=== PATIENT | male | born 1990 | race Caucasian/White ===

== ENCOUNTER 2023-06-14 14:01 | Observation (INO) | payer OTHER ==
--- NOTE | 2023-06-14 14:08 | ED ---
General Adult HPI - General Source: patient, RN notes reviewed Mode of arrival: ambulatory Limitations: no limitations <Praveen Jensen - Last Filed: 06/14/23 14:07> <Frank Staton - Last Filed: 06/14/23 17:18> - General Stated complaint: hemoglobin low Time Seen by Provider: 06/14/23 14:07 - History of Present Illness Initial comments: 33-year-old male presents emergency Department with chief complaint of anemia. Patient states received phone call stating his hemoglobin is fine. He states that he's been having rectal bleeding from hemorrhoids he states was improving. He did have some bad days. He does feel short breath, dizzy. (Praveen Jensen) 33-year-old male presents to ED with a chief complaint of abnormal labs. Patient states over the past for the 4-5 weeks, has had a bleeding hemorrhoid. States that this has been slowly seeping blood. Denies gross blood. Denies abdominal pain. Denies chest pain. States over the past week has felt increasingly lightheaded/dizzy and short of breath especially with activity. Per , states that her is more pale than usual. Notes his last colon oscopy was 7 years ago however is unable to report any remarkable findings. States that he had his blood drawn and was told that his hemoglobin was 5 and was advised to present to the ED for further evaluation. No other complaints. (Frank Staton) - Related Data Previous Rx's Medication Instructions Recorded EPINEPHrine [Epipen 2-Chris] 0.3 mg IJ ONCE PRN #2 auto.injct 06/05/18 predniSONE [Deltasone] 60 mg PO DAILY 4 Days #12 tablet 06/05/18 Allergies Allergy/AdvReac Type Severity Reaction Status Date / Time No Known Allergies Allergy Verified 06/05/18 17:29 Review of Systems ROS Other: All systems not noted in ROS Statement are negative. <Praveen Jensen - Last Filed: 06/14/23 14:07> ROS Other: All systems not noted in ROS Statement are negative. <Frank Staton - Last Filed: 06/14/23 17:18> ROS Statement: Those systems with pertinent positive or pertinent negative responses have been documented in the HPI. Past Medical History Past Medical History: No Reported History History of Any Multi-Drug Resistant Organisms: None Reported Past Surgical History: No Surgical Hx Reported Past Psychological History: No Psychological Hx Reported Past Alcohol Use History: Occasional Past Drug Use History: None Reported <Praveen Jensen - Last Filed: 06/14/23 14:07> General Exam General appearance: alert, in no apparent distress <Praveen Jensen - Last Filed: 06/14/23 14:07> Limitations: no limitations General appearance: alert, in no apparent distress Eye exam: Present: normal appearance Neck exam: Present: normal inspection Respiratory exam: Present: normal lung sounds bilaterally Cardiovascular Exam: Present: regular rate, normal rhythm GI/Abdominal exam: Present: soft Rectal exam: Present: other (Exam showed nonthrombosed external hemorrhoid with no gross blood.) Neurological exam: Present: alert, oriented X3 Skin exam: Present: warm, dry <Frank Staton - Last Filed: 06/14/23 17:18> - General Exam Comments Initial Comments: Visual Physical Exam Vital signs reviewed General: Well-appearing, nontoxic, no acute distress. Head: Normocephalic, atraumatic Eyes: PERRLA, EOMI ENT: Airway patent Chest: Nonlabored breathing Skin: No visual rash, normal skin tone Neuro: Alert and oriented 3 Musculoskeletal: No gross abnormalities (Praveen Jensen) Course Vital Signs 06/14/23 14:04 Temperature 97.8 F Pulse Rate 96 Respiratory 20 Rate Blood Pressure 152/84 O2 Sat by Pulse 94 L Oximetry Medical Decision Making <Praveen Jensen - Last Filed: 06/14/23 14:07> - Lab Data Result diagrams: 06/14/23 14:17 06/14/23 14:17 <Frank Staton - Last Filed: 06/14/23 17:18> - Medical Decision Making I performed the quick note portion of this chart signed Praveen Jensen PA-C (Parveen Jensen) Was pt. sent in by a medical professional or institution ([place] Candelaria, DISTANCE EDUCATION DIRECTOR, urgent care, hospital, or usp...) When possible be specific @ -No Did you speak to anyone other than the patient for history (EMS, parent, family, police, friend...)? What history was obtained from this source @ -No Did you review nursing and triage notes (agree or disagree)? Why? @ -I reviewed and agree with nursing and triage notes Were old charts reviewed (outside hosp., previous admission, EMS record, old EKG, old radiological studies, urgent care reports/EKG's, usp records)? Report findings @ -No old charts were reviewed Differential Diagnosis (chest pain, altered mental status, abdominal pain women, abdominal pain men, vaginal bleeding, weakness, fever, dyspnea, syncope, headache, dizziness, GI bleed, back pain, seizure, CVA, palpatations, mental health, musculoskeletal)? @ -Differential Weakness: Hypoglycemia, shock, sepsis, hyponatremia, anemia, infection, IA, ETOH, adverse medicine reaction, overdose, stroke, this is not meant to be an all-inclusive list. EKG interpreted by me (3pts min.). @ -None at this time, pending X-rays interpreted by me (1pt min.). @ -None done CT interpreted by me (1pt min.). @ -None done U/S interpreted by me (1pt. min.). @ -None done What testing was considered but not performed or refused? (CT, X-rays, U/S, labs)? Why? @ -None What meds were considered but not given or refused? Why? @ -None Did you discuss the management of the patient with other professionals (professionals i.e. , PA, DISTANCE EDUCATION DIRECTOR, lab, RT, psych nurse, elementary school social worker, posting specialist, teacher, aoc airspace control officer, special education case manager)? Give summary @ -No Was smoking cessation discussed for >3mins.? @ -No Was critical care preformed (if so, how long)? @ -No Were there social determinants of health that impacted care today? How? (Homelessness, low income, unemployed, alcoholism, drug addiction, transportation, low edu. Level, literacy, decrease access to med. care, senior living, rehab)? @ -No Was there de-escalation of care discussed even if they declined (Discuss DNR or withdrawal of care, Hospice)? DNR status @ -No What co-morbidities impacted this encounter? (DM, HTN, Smoking, COPD, CAD, Cancer, CVA, ARF, Chemo, Hep., AIDS, mental health diagnosis, sleep apnea, morbid obesity)? @ -None Was patient admitted / discharged? Hospital course, mention meds given and route, prescriptions, significant lab abnormalities, going to OR and other pertinent info. @ -Admission 33-year-old male with a hemorrhoid noting some bleeding over the past few weeks now with lightheadedness, pallor, and shortness of breath is especially with activity sent in to the ED with abnormal labs. Here, hemoglobin 6.1. Exam showed no gross blood and currently patient has no signs of active bleeding. Patient given a unit of blood and a liter of fluids here in the ED. Patient will be admitted with consult to GI for continued transfusion, serial hemoglobin and GI consult. Discussed plan of care with patient who is in agreement. Undiagnosed new problem with uncertain prognosis? @ -No Drug Therapy requiring intensive monitoring for toxicity (Heparin, Nitro, Insulin, Cardizem)? @ -No Were any procedures done? @ -No Diagnosis/symptom? @ -Anemia, hemorrhoid, GI bleed Acute, or Chronic, or Acute on Chronic? @ -Acute Uncomplicated (without systemic symptoms) or Complicated (systemic symptoms)? @ -Complicated Side effects of treatment? @ -No Exacerbation, Progression, or Severe Exacerbation? @ -No Poses a threat to life or bodily function? How? (Chest pain, USA, IA, pneumonia, PE, COPD, DKA, ARF, appy, cholecystitis, CVA, Diverticulitis, Homicidal, Suicidal, threat to staff... and all critical care pts) @ -Yes, anemia (Frank Staton) - Lab Data Lab Results 06/14/23 06/14/23 06/14/23 Range/Units 14:17 14:17 14:17 WBC 3.6 L (3.8-10.6) k/uL RBC 3.63 L (4.30-5.90) m/uL Hgb 6.1 L* (13.0-17.5) gm/dL Hct 23.3 L (39.0-53.0) % MCV 64.1 L (80.0-100.0) fL MCH 16.8 L (25.0-35.0) pg MCHC 26.3 L (31.0-37.0) g/dL RDW 15.7 H (11.5-15.5) % Plt Count 339 (150-450) k/uL MPV 9.1 Neutrophils % 66 % Lymphocytes % 26 % Monocytes % 4 % Eosinophils % 2 % Basophils % 0 % Neutrophils # 2.4 (1.3-7.7) k/uL Lymphocytes # 1.0 (1.0-4.8) k/uL Monocytes # 0.2 (0-1.0) k/uL Eosinophils # 0.1 (0-0.7) k/uL Basophils # 0.0 (0-0.2) k/uL Hypochromasia Marked Microcytosis Marked PT 11.0 (9.0-12.0) sec INR 1.0 (<1.2) APTT 20.7 L (22.0-30.0) sec Sodium 140 (137-145) mmol/L Potassium 3.9 (3.5-5.1) mmol/L Chloride 104 (98-107) mmol/L Carbon Dioxide 24 (22-30) mmol/L Anion Gap 12 mmol/L BUN 16 (9-20) mg/dL Creatinine 0.98 (0.66-1.25) mg/dL Est GFR (CKD-EPI)AfAm >90 (>60 ml/min/1.73 sqM) Est GFR (CKD-EPI)NonAf >90 (>60 ml/min/1.73 sqM) Glucose 116 H (74-99) mg/dL Calcium 9.4 (8.4-10.2) mg/dL Magnesium 1.9 (1.6-2.3) mg/dL Total Bilirubin 0.6 (0.2-1.3) mg/dL AST 22 (17-59) U/L ALT 19 (4-49) U/L Alkaline Phosphatase 57 (38-126) U/L Total Protein 8.0 (6.3-8.2) g/dL Albumin 4.7 (3.5-5.0) g/dL Stool Occult Blood (Negative) Blood Type Blood Type Confirm Blood Type Recheck Bld Type Recheck Status Antibody Screen Crossmatch Spec Expiration Date 06/14/23 06/14/23 06/14/23 Range/Units 14:17 14:20 16:59 WBC (3.8-10.6) k/uL RBC (4.30-5.90) m/uL Hgb (13.0-17.5) gm/dL Hct (39.0-53.0) % MCV (80.0-100.0) fL MCH (25.0-35.0) pg MCHC (31.0-37.0) g/dL RDW (11.5-15.5) % Plt Count (150-450) k/uL MPV Neutrophils % % Lymphocytes % % Monocytes % % Eosinophils % % Basophils % % Neutrophils # (1.3-7.7) k/uL Lymphocytes # (1.0-4.8) k/uL Monocytes # (0-1.0) k/uL Eosinophils # (0-0.7) k/uL Basophils # (0-0.2) k/uL Hypochromasia Microcytosis PT (9.0-12.0) sec INR (<1.2) APTT (22.0-30.0) sec Sodium (137-145) mmol/L Potassium (3.5-5.1) mmol/L Chloride (98-107) mmol/L Carbon Dioxide (22-30) mmol/L Anion Gap mmol/L BUN (9-20) mg/dL Creatinine (0.66-1.25) mg/dL Est GFR (CKD-EPI)AfAm (>60 ml/min/1.73 sqM) Est GFR (CKD-EPI)NonAf (>60 ml/min/1.73 sqM) Glucose (74-99) mg/dL Calcium (8.4-10.2) mg/dL Magnesium (1.6-2.3) mg/dL Total Bilirubin (0.2-1.3) mg/dL AST (17-59) U/L ALT (4-49) U/L Alkaline Phosphatase (38-126) U/L Total Protein (6.3-8.2) g/dL Albumin (3.5-5.0) g/dL Stool Occult Blood Negative (Negative) Blood Type O Positive Blood Type Confirm O Positive Blood Type Recheck No Previous Record Bld Type Recheck Status CABO Indicated Antibody Screen NEGATIVE Crossmatch See Detail Spec Expiration Date 06/17/2023 - 2316 Disposition <Praveen Jensen - Last Filed: 06/14/23 14:07> Time of Disposition: 17:11 <Frank Staton - Last Filed: 06/14/23 17:18> Clinical Impression: Anemia, Hemorrhoid Disposition: ADMITTED IP TO THIS [facility] Condition: Good Referrals: Denise Rae DO [Primary Care Provider] - 1-2 days
[2023-06-14 14:42] LABS: ALT 19 U/L (4-49); AST 22 U/L (17-59); African American GFR (CKD) >90 (>60 ml/min/1.73 sqM); Albumin 4.7 g/dL (3.5-5.0); Alkaline Phosphatase 57 U/L (38-126); Anion Gap 12 mmol/L; Blood Urea Nitrogen 16 mg/dL (9-20); Calcium 9.4 mg/dL (8.4-10.2); Carbon Dioxide 24 mmol/L (22-30); Chloride 104 mmol/L (98-107); Glucose 116 mg/dL (74-99); Magnesium 1.9 mg/dL (1.6-2.3); Non-African American GFR(CKD) >90 (>60 ml/min/1.73 sqM); Potassium 3.9 mmol/L (3.5-5.1); Sodium 140 mmol/L (137-145); Total Bilirubin 0.6 mg/dL (0.2-1.3)
[2023-06-14 14:53] LABS: Basophils % (A) 0 %; Eosinophils # (A) 0.1 k/uL (0-0.7); Eosinophils % (A) 2 %; HCT 23.3 % (39.0-53.0); Hypochromasia Marked; Lymphocytes % (A) 26 %; MCH 16.8 pg (25.0-35.0); MCHC 26.3 g/dL (31.0-37.0); MCV 64.1 fL (80.0-100.0); Mean Platelet Volume 9.1; Microcytosis Marked; Monocytes # (A) 0.2 k/uL (0-1.0); Monocytes % (A) 4 %; Neutrophils # (A) 2.4 k/uL (1.3-7.7); Neutrophils % (A) 66 %; Platelet Count 339 k/uL (150-450); RBC 3.63 m/uL (4.30-5.90); RDW 15.7 % (11.5-15.5); WBC 3.6 k/uL (3.8-10.6)
[2023-06-14 14:57] LABS: HGB 6.1 gm/dL (13.0-17.5)
[2023-06-14 15:14] LABS: Partial Thromboplastin Time 20.7 sec (22.0-30.0)
[2023-06-14] MEDS ORDERED: SODIUM CHLORIDE 0.9% 1,000 ML IV STA (16:09)
[2023-06-14] MEDS ORDERED: NALOXONE 0.4 MG/ML 1 ML VIAL IV PRN (17:19)
[2023-06-14] MEDS ORDERED: ACETAMINOPHEN TAB 325 MG TAB PO PRN (17:19)
[2023-06-14] MEDS ORDERED: HYDROmorphone 1 MG/ML 1 ML SYRINGE IVP PRN (17:19)
[2023-06-14] MEDS ORDERED: ONDANSETRON 4 MG/2 ML VIAL IVP PRN (17:49)
[2023-06-14] MEDS ORDERED: MELATONIN 3 MG TABLET PO PRN (17:49)
--- NOTE | 2023-06-14 18:05 | P.HPIM ---
History of Present Illness H&P Date: 06/14/23 Patient was seen in the waiting room. 33-year-old male with PMH of hemorrhoids presents to the ED for abnormal blood work. Patient reports suffering from hemorrhoids since the age of 19. Over the last 2 weeks he has been experiencing BRBPR with every bowel movement. Bleeding is excessive but resolves on its own. He reports 1-2 bowel movements daily. Recently, he started experiencing palpitations while working out. He also experienced lightheadedness when attempting to climb a flight of stairs. He reports fatigue and generalized weakness. He denies any headache, lower extremity edema, nausea or vomiting, fever or chills, cough, chest pain, shortness of breath, changes in urination. No changes in appetite or weight. He denies any focal neurologic deficits, numbness/weakness/tingling of the extremities. He went to go see his PCP that [facility]. He was noted to have a low hemoglobin which prompted him to come to the ED. Patient was noted to be tachycardic with heart rate of 96 in the ED. Vital signs otherwise stable. CBC showed WBC count of 3.6, hemoglobin of 6.1 with MCV of 64.1. Coag panel showed a PTT of 20.7. CMP showed glucose 116. EKG from 06/05 showed normal sinus rhythm with sinus arrhythmia. Patient is admitted for symptomatic anemia and GI bleed with GI in consultation. Pertinent positives and negatives as discussed in HPI, a complete review of sy stems was performed and all other systems are negative. General: non toxic, no distress, appears at stated age Derm: warm, dry, pale Head: atraumatic, normocephalic, symmetric Eyes: EOMI, no lid lag, anicteric sclera Cardiovascular: Good distal perfusion in all 4 extremities Lungs: Breathing comfrotably , no accessory muscle use Ext: no gross muscle atrophy, no edema, no contractures Neuro: no focal neuro deficits Psych: Alert, oriented, appropriate affect Acute lower GI bleed Hemorrhoids Leukopenia Obesity Based on my assessment of this patient, this patient meets a high complexity level of care. Patient has a history of hemorrhoids with severe exacerbation or progression of disease which poses a threat to life or bodily function. Acute lower GI bleed: CBC Q4H x 2. Microcytic. Likely iron deficiency. Iron studies, Ferritin. Transfuse 1 unit PRBC. Telemetry monitoring. GI consult Hemorrhoids Leukopenia: Mild. Continue to monitor. Consider workup if persistent. Obesity: Encourage weight loss. SCD for DVT prophylaxis. FULL CODE. I have reviewed the following project management consultant notes: I have reviewed the results of the following tests: CBC, CMP, Coag panel. I have ordered the following tests: CBC, CMP, Iron studies, Ferritin I have discussed the care of this patient with the following independent historian: I have independently interpreted the following test below: EKG I have discussed the management of this patient with the following physician: Discussed with the ED provider. Past Medical History Past Medical History: No Reported History Additional Past Medical History / Comment(s): hemmorrhoids History of Any Multi-Drug Resistant Organisms: None Reported Past Surgical History: No Surgical Hx Reported Past Psychological History: No Psychological Hx Reported Past Alcohol Use History: Occasional Past Drug Use History: None Reported Medications and Allergies Home Medications Medication Instructions Recorded Confirmed Type Naproxen Sodium [Aleve] 220 - 440 mg PO BID PRN 06/14/23 06/14/23 History Allergies Allergy/AdvReac Type Severity Reaction Status Date / Time No Known Allergies Allergy Verified 06/14/23 18:02 Physical Exam Vitals: Vital Signs Temp Pulse Resp BP Pulse Ox 06/14/23 14:04 97.8 F 96 20 152/84 94 L Intake and Output 06/14/23 06/14/23 06/14/23 06:59 14:59 22:59 Other: Weight 120.202 kg Results CBC & Chem 7: 06/14/23 14:17 06/14/23 14:17 Labs: Abnormal Lab Results - Last 24 Hours (Table) 06/14/23 06/14/23 06/14/23 Range/Units 14:17 14:17 14:17 WBC 3.6 L (3.8-10.6) k/uL RBC 3.63 L (4.30-5.90) m/uL Hgb 6.1 L* (13.0-17.5) gm/dL Hct 23.3 L (39.0-53.0) % MCV 64.1 L (80.0-100.0) fL MCH 16.8 L (25.0-35.0) pg MCHC 26.3 L (31.0-37.0) g/dL RDW 15.7 H (11.5-15.5) % APTT 20.7 L (22.0-30.0) sec Glucose 116 H (74-99) mg/dL Crossmatch 06/14/23 Range/Units 14:17 WBC (3.8-10.6) k/uL RBC (4.30-5.90) m/uL Hgb (13.0-17.5) gm/dL Hct (39.0-53.0) % MCV (80.0-100.0) fL MCH (25.0-35.0) pg MCHC (31.0-37.0) g/dL RDW (11.5-15.5) % APTT (22.0-30.0) sec Glucose (74-99) mg/dL Crossmatch See Detail
[2023-06-14 20:39] LABS: Anisocytosis Slight; Basophils % (A) 0 %; Eosinophils # (A) 0.1 k/uL (0-0.7); Eosinophils % (A) 1 %; HCT 21.3 % (39.0-53.0); Hypochromasia Marked; Lymphocytes # (A) 1.1 k/uL (1.0-4.8); Lymphocytes % (A) 29 %; MCH 18.3 pg (25.0-35.0); MCHC 28.8 g/dL (31.0-37.0); MCV 63.5 fL (80.0-100.0); Mean Platelet Volume 8.2; Microcytosis Marked; Monocytes # (A) 0.2 k/uL (0-1.0); Monocytes % (A) 5 %; Neutrophils # (A) 2.5 k/uL (1.3-7.7); Neutrophils % (A) 64 %; Platelet Count 278 k/uL (150-450); Poikilocytosis Moderate; RBC 3.35 m/uL (4.30-5.90); RDW 18.4 % (11.5-15.5)
[2023-06-14 21:14] LABS: HGB 6.1 gm/dL (13.0-17.5)
[2023-06-14] MEDS: SODIUM CHLORIDE 0.9% 1,000 ML IV SCH (21:37)
[2023-06-15 01:22] LABS: Anisocytosis Moderate; Basophils % (A) 0 %; Eosinophils # (A) 0.1 k/uL (0-0.7); Eosinophils % (A) 2 %; HCT 22.6 % (39.0-53.0); Hypochromasia Marked; Lymphocytes # (A) 1.2 k/uL (1.0-4.8); Lymphocytes % (A) 32 %; MCH 19.4 pg (25.0-35.0); MCHC 29.5 g/dL (31.0-37.0); MCV 65.7 fL (80.0-100.0); Mean Platelet Volume 8.4; Microcytosis Marked; Monocytes # (A) 0.2 k/uL (0-1.0); Monocytes % (A) 6 %; Neutrophils # (A) 2.1 k/uL (1.3-7.7); Neutrophils % (A) 58 %; Platelet Count 235 k/uL (150-450); Poikilocytosis Marked; RBC 3.44 m/uL (4.30-5.90); RDW 20.1 % (11.5-15.5); WBC 3.6 k/uL (3.8-10.6)
[2023-06-15 01:35] LABS: HGB 6.7 gm/dL (13.0-17.5)
[2023-06-15] MEDS: SODIUM CHLORIDE 0.9% 1,000 ML IV SCH (03:11)
[2023-06-15 07:33] LABS: Anisocytosis Slight; Basophils % (A) 0 %; Eosinophils # (A) 0.1 k/uL (0-0.7); Eosinophils % (A) 2 %; HCT 23.9 % (39.0-53.0); HGB 7.1 gm/dL (13.0-17.5); Hypochromasia Marked; Lymphocytes # (A) 1.1 k/uL (1.0-4.8); Lymphocytes % (A) 34 %; MCH 19.4 pg (25.0-35.0); MCHC 29.6 g/dL (31.0-37.0); MCV 65.4 fL (80.0-100.0); Mean Platelet Volume 7.4; Microcytosis Marked; Monocytes # (A) 0.2 k/uL (0-1.0); Monocytes % (A) 6 %; Neutrophils # (A) 1.8 k/uL (1.3-7.7); Neutrophils % (A) 57 %; Platelet Count 271 k/uL (150-450); Poikilocytosis Marked; RBC 3.65 m/uL (4.30-5.90); RDW 19.5 % (11.5-15.5); WBC 3.2 k/uL (3.8-10.6)
[2023-06-15 09:24] LABS: Reticulocyte % 1.4 % (0.5-2.0)
[2023-06-15 10:30] VITALS: RESP 18
[2023-06-15 11:27] LABS: % Iron Saturation 2.62 (12.00-50.00); Ferritin 2.2 ng/mL (10.0-322.0)
--- NOTE | 2023-06-15 12:41 | P.CONS ---
History of Present Illness - Reason for Consult Consult date: 06/15/23 Anemia, GI bleed Requesting physician: Frank Staton - Chief Complaint Rectal bleeding, anemia - History of Present Illness This a pleasant 33-year-old male with a past medical history significant hemorrhoids which she states started at the age of 19. About 7 years ago he underwent hemorrhoidectomy with Dr. Aguilar out of [facility]. Patient came to emergency department because he was told he had a low hemoglobin of 5.0. He has been feeling very short of breath, dizzy and fatigued and went to his PCP who [facility] and called patient to tell him to go to the emergency department for further evaluation. Patient states he has been having rectal bleeding sundar t has been heavier over the past week and he attributes it to his hemorrhoids. He states that he had not been eating well and when he eats fatty foods or milk products he will have loose stools about 5-6 a day. States that since he started eating better bleeding has subsided. He actually sees Dr. Aguilar June 30. He denies any associated abdominal pain, nausea or vomiting. No abdominal cramping. He does state though he has a lot of abdominal issues as far as foods that he does not tolerate causing him upset stomach and diarrhea. Last EGD and colonoscopy about 7 years [address] Aguilar, states that everything was normal other than hemorrhoids. According to the patient he had multiple internal hemorrhoids and not all were able to be removed. On admission patient's hemoglobin was 6.1. His been transfused with 2 units of blood with a repeat hemoglobin of 7.1. He currently states he is feeling a little bit better, denies any shortness of breath or chest pain at this time. No abdominal pain, nausea or vomiting. States he has not had a bowel movement since yesterday and no further bleeding. He denies any anticoagulation or NSAID use. Review of Systems REVIEW OF SYSTEMS: CARDIOPULMONARY: No chest pain or shortness of breath. Gastrointestinal: No abdominal pain. No nausea or vomiting. No hematemesis, coffee-ground emesis. Rectal, reported as hemorrhoidal bleeding. GENITOURINARY: No dysuria or hematuria. MUSCULOSKELETAL: Reports normal range of motion. SKIN: No rashes. No jaundice. ENDOCRINE: No chills, fevers. No excessive weight gain or loss. No polydipsia or polyuria. PSYCHIATRIC: Unremarkable. NEUROLOGY: No change in mental status. Denies dizziness, headache. ENT: Vision unremarkable. CONSTITUTIONAL: No recent weight loss. No fever, chills, night sweats. Past Medical History Past Medical History: No Reported History Additional Past Medical History / Comment(s): hemmorrhoids History of Any Multi-Drug Resistant Organisms: None Reported Past Surgical History: No Surgical Hx Reported Past Psychological History: No Psychological Hx Reported Past Alcohol Use History: Occasional Past Drug Use History: None Reported Medications and Allergies Home Medications Medication Instructions Recorded Confirmed Type Naproxen Sodium [Aleve] 220 - 440 mg PO BID PRN 06/14/23 06/14/23 History Allergies Allergy/AdvReac Type Severity Reaction Status Date / Time No Known Allergies Allergy Verified 06/14/23 18:02 Physical Exam Vitals: Vital Signs Temp Pulse Resp BP Pulse Ox 06/15/23 07:35 98.8 F 64 17 131/92 99 06/15/23 04:25 60 16 138/80 98 06/14/23 23:41 98.6 F 62 16 120/72 98 06/14/23 22:47 98.6 F 68 16 127/75 100 06/14/23 22:27 98.7 F 66 16 127/68 100 06/14/23 22:20 98.5 F 70 16 127/64 100 06/14/23 20:31 98.1 F 67 16 122/66 100 06/14/23 20:24 61 16 122/66 06/14/23 19:27 98.7 F 61 16 102/51 100 06/14/23 19:07 98.6 F 59 L 16 127/71 100 06/14/23 18:55 98.6 F 72 18 126/66 99 06/14/23 14:04 97.8 F 96 20 152/84 94 L Intake and Output 06/14/23 06/15/23 06/15/23 22:59 06:59 14:59 Intake Total 310 310 Balance 310 310 Intake: Blood Product 310 310 Rc As-1 Unit 0 310 [id number] Rc As-1 Unit 310 [id number] General appearance: The patient is alert, oriented, appears in no acute distress. HET: Head is normocephalic and atraumatic. Conjunctiva pink. Sclera anicteric. Neck: Supple without lymphadenopathy. Trachea midline. Heart: Regular. Lungs: Equal expansion, normal respiratory effort. Abdomen: Soft, nontender, nondistended with bowel sounds. No guarding or rigidity. Skin: No rashes. No jaundice. Extremities: Normal skin color and turgor. No pedal edema. Neurological: No focal deficits. Alert and oriented x3. Results CBC & Chem 7: 06/15/23 07:25 06/15/23 07:25 Labs: Abnormal Lab Results - Last 24 Hours (Table) 06/14/23 06/14/23 06/14/23 Range/Units 14:17 14:17 14:17 WBC 3.6 L (3.8-10.6) k/uL RBC 3.63 L (4.30-5.90) m/uL Hgb 6.1 L* (13.0-17.5) gm/dL Hct 23.3 L (39.0-53.0) % MCV 64.1 L (80.0-100.0) fL MCH 16.8 L (25.0-35.0) pg MCHC 26.3 L (31.0-37.0) g/dL RDW 15.7 H (11.5-15.5) % APTT 20.7 L (22.0-30.0) sec Glucose 116 H (74-99) mg/dL Crossmatch 06/14/23 06/14/23 06/15/23 Range/Units 14:17 20:23 00:46 WBC 3.6 L (3.8-10.6) k/uL RBC 3.35 L 3.44 L (4.30-5.90) m/uL Hgb 6.1 L* 6.7 L* (13.0-17.5) gm/dL Hct 21.3 L 22.6 L (39.0-53.0) % MCV 63.5 L 65.7 L (80.0-100.0) fL MCH 18.3 L 19.4 L (25.0-35.0) pg MCHC 28.8 L 29.5 L (31.0-37.0) g/dL RDW 18.4 H 20.1 H (11.5-15.5) % APTT (22.0-30.0) sec Glucose (74-99) mg/dL Crossmatch See Detail 06/15/23 Range/Units 07:25 WBC 3.2 L (3.8-10.6) k/uL RBC 3.65 L (4.30-5.90) m/uL Hgb 7.1 L (13.0-17.5) gm/dL Hct 23.9 L (39.0-53.0) % MCV 65.4 L (80.0-100.0) fL MCH 19.4 L (25.0-35.0) pg MCHC 29.6 L (31.0-37.0) g/dL RDW 19.5 H (11.5-15.5) % APTT (22.0-30.0) sec Glucose (74-99) mg/dL Crossmatch Assessment and Plan (1) Rectal bleeding Narrative/Plan: 33-year-old male with a history of hemorrhoids status post hemorrhoidectomy approximately 7 years ago. Patient follows with Dr. Aguilar out of [facility] and is scheduled in 2 weeks for follow-up. Patient has been experiencing heavier amounts of bleeding from his hemorrhoids and believes it's related to increased diarrhea due to his diet. He had been feeling weak and dizzy have blood work done at his PCP showing a hemoglobin of 5.0. Unclear etiology of severe symptomatic anemia, patient does have a history of hemorrhoids however patient is again significantly anemic. Recommend further evaluation with upper and lower endoscopy for severe symptomatic anemia. Later in the afternoon patient left AGAINST MEDICAL ADVICE because he did not want to wait in the emergency department and wait for bed any longer. Patient was aware and told that there was a risk for continued bleeding and recommendation was for inpatient admission and EGD and colonoscopy. Status: Acute Code(s): K62.5 - HEMORRHAGE OF ANUS AND RECTUM SNOMED Code(s): 85716921 (2) Iron deficiency anemia Status: Acute Code(s): D50.9 - IRON DEFICIENCY ANEMIA, UNSPECIFIED SNOMED Code(s): 53301887 Plan: 1. Continue symptomatic and supportive care 2. Daily CBC, transfuse for hemoglobin less than 7 3. Iron studies reviewed, IV iron ordered 4. Clear liquid diet, nothing by mouth after midnight 5. Recommend EGD and colonoscopy tomorrow Thank you for this consultation, we will continue to follow Dr. Riky Aguilar I agree with the dictator's note, documented as a scribe by Zenaida Carbajal.
[2023-06-15 13:09] VITALS: BP 133/72; PULSE 60; TEMP 98.1
[2023-06-15 13:50] LABS: ALT 17 U/L (8-49); AST 22 U/L (13-35); Albumin 4.3 d/dL (3.8-4.9); Albumin/Globulin Ratio 2.05 Ratio (1.60-3.17); Alkaline Phosphatase 55 U/L (41-126); BUN/Creat Ratio 13.11 Ratio (12.00-20.00); Blood Urea Nitrogen 11.8 mg/dL (9.0-27.0); Carbon Dioxide 22.3 mmol/L (21.6-31.8); Chloride 109 mmol/L (96-109); Globulin 2.1 d/dL (1.6-3.3); Glucose 89 mg/dL (70-110); Potassium 4.6 mmol/L (3.5-5.5); Sodium 140 mmol/L (135-145); Total Bilirubin 0.8 mg/dL (0.3-1.2); Total Protein 6.4 d/dL (6.2-8.2)
--- NOTE | 2023-06-15 14:02 | P.DS ---
Providers Date of admission: 06/14/23 16:59 Expected date of discharge: 06/15/23 Attending physician: Thanh Archibald MD Consults: 06/14/23 17:19 Consult Physician Urgent Consulting Provider: Adrienne Aguilar Consult Reason/Comments: anemia, hemorrhoid, GI bleed Do you want consulting provider notified?: Yes Primary care physician: Denise Rae Hospital Course: Discharge Diagnosis: This is a summary of care as patient left AGAINST MEDICAL ADVICE. Acute blood loss anemia Hemorrhoids Severe iron deficiency anemia with ferritin 2.2 Leukopenia Hospital Course: Patient is a 33-year-old male with a history of multiple hemorrhoids who follows with Dr. Aguilar who has been suffering from hemorrhoids since the age of 19. Over the last 2 weeks he's been noticing bright red blood per rectum with every bowel movement. He had blood work done at his primary care physician office and was noted to have a hemoglobin of 5 and was directed to the ER. On arrival to the ER he underwent an extensive evaluation. On arrival vital signs were within normal limits. Laboratory analysis was remarkable for hemoglobin 6.1, h ematocrit 23.3, white blood cell count 6.3, PTT 20.7. Fecal occult blood testing was negative. He was transfused 2 units of packed red blood cells and his hemoglobin increased to 7.1. GI was consulted and was recommending upper and lower endoscopy. Patient did not have any repeat bleeding while in the ER, but had had no bowel movements. We recommended the patient staying to be evaluated with EGD and colonoscopy. However patient and were frustrated that he remain in the emergency department that there was no beds available upon the floor. They expressed this to both me and the GI nurse practitioner when we rounded this morning. We both encouraged him to stay for further evaluation giving the severity of his anemia which was unlikely due to hemorrhoids. We discussed that low blood counts can lead to weakness, trace of breath, chest pain, and syncopal episodes. Patient was encouraged to stay for colonoscopy. I was called by nursing that patient wanted to leave AMA as he still did not have a room at 1253, and he was asking if he could return for colonoscopy. I discussed with GI, but they are unable to accommodate as outpatient for emergency colonoscopy. Patient and elected to sign out AGAINST MEDICAL ADVICE. The left prior to my ability to reevaluate them. I did discuss with the nurse caring for the patient to encourage him to stay as his iron stores are exceedingly low,which she did and they continued to refuse to stay, I informed the nurse that he should follow up with his surgeon at the earliest convenience. Patient seen and examined at bedside at approx 0930. No additional bleeding, but no bowel movement while in the emergency department. He is feeling much better after receiving blood. states that they will sign out AMA if they don't get a bed as he will not prep for colonoscopy in the E with a shared bathroom. I informed her that we are doing the best to accommodate all patients holding in the ED and they are roomed in order received for the medical floor. Vital signs reviewed and stable. General: nontoxic, no distress, appears at stated age Cardiovascular: S1S2 reg, no murmur, positive posterior tibial pulse bilateral, Lungs: CTA bilateral, no rhonchi, no rales , no accessory muscle use Abdominal: soft, nontender to palpation, no guarding, no appreciable organomegaly Ext: no gross muscle atrophy, no edema b/l lower extremities, no contractures Neuro: CN II-XI grossly intact, no focal neuro deficits Psych: Alert, oriented, appropriate affect A total of 25 minutes of time were spent preparing this complex discharge summary. Patient was discharged on 06/15/23. This dictation was prepared using [employer] voice recognition software. Though every attempt is made to correct errors during dictation some may still exist. Patient Condition at Discharge: Undetermined Plan - Discharge Summary New Discharge Prescriptions: No Action Naproxen Sodium [Aleve] 220 - 440 mg PO BID PRN PRN Reason: Headache Discharge Medication List Naproxen Sodium [Aleve] 220 - 440 mg PO BID PRN 06/14/23 [History] Follow up Appointment(s)/Referral(s): Denise Rae DO [Primary Care Provider] - 1-2 days Discharge Disposition: LEFT AGAINST MEDICAL ADVICE
[2023-06-16] MEDS ORDERED: SODIUM FERRIC GLUCONAT-SUCROSE 125 MG in SODIUM CHLORIDE 0.9% 100 ML IVPB SCH (09:00)
== END 2023-06-15 13:15 | disposition left against medical advice (07) ==
LOC: EC 14:01 → 5NMEDONC 16:59
PROVIDERS: ADMIT Family Medicine; ATTEND Family Medicine
DX: D62 Acute posthemorrhagic anemia (principal); D50.9 Iron deficiency anemia, unspecified; D72.819 Decreased white blood cell count, unspecified; Z53.29 Procedure and treatment not carried out because of patient's decision for other reasons; K64.9 Unspecified hemorrhoids; R00.0 Tachycardia, unspecified; E66.9 Obesity, unspecified; Z68.37 Body mass index [BMI] 37.0-37.9, adult; Z79.52 Long term (current) use of systemic steroids
CPT/HCPCS: 36430; 96360; 96361 ×2; 99285; 36415; 93005; 86900; 86901; 80053 ×2; 82728; 83540; 83550; 83735; 85025 ×2; 85610; 85045; 85730; 86850; 86920; 82272; G0378 ×2; P9016

== ENCOUNTER → 2023-11-19 | Outpatient (CLI) | payer OTHER ==
[2023-11-19 15:37] LABS: % Iron Saturation 3.89 (12.00-50.00); ALT 12 U/L (8-49); AST 23 U/L (13-35); Albumin 4.6 g/dL (3.8-4.9); Albumin/Globulin Ratio 1.48 Ratio (1.60-3.17); Alkaline Phosphatase 72 U/L (41-126); Blood Urea Nitrogen 17.2 mg/dL (9.0-27.0); Calcium 9.6 mg/dL (8.7-10.3); Carbon Dioxide 24.4 mmol/L (21.6-31.8); Chloride 105 mmol/L (96-109); Ferritin 4.6 ng/mL (10.0-322.0); Globulin 3.1 g/dL (1.6-3.3); Glucose 89 mg/dL (70-110); Iron 20 UG/DL (50-175); Potassium 4.5 mmol/L (3.5-5.5); Sodium 141 mmol/L (135-145); Total Bilirubin 0.4 mg/dL (0.3-1.2); Total Iron Binding Capacity 514 UG/DL (228-460); Total Protein 7.7 g/dL (6.2-8.2)
[2023-11-19 15:54] LABS: Basophils # (A) 0.02 X 10*3/uL (0.00-0.10); Basophils % (A) 0.5 %; Eosinophils # (A) 0.07 X 10*3/uL (0.04-0.35); Eosinophils % (A) 1.6 %; HCT 37.2 % (37.2-50.0); HGB 10.7 g/dL (12.0-17.0); Hypochromasia (M) 2+; Lymphocytes # (A) 1.13 X 10*3/uL (0.90-5.00); Lymphocytes % (A) 25.5 %; MCH 19.5 pg (27.0-32.0); MCHC 28.8 g/dL (32.0-37.0); MCV 67.8 FL (80.0-97.0); Mean Platelet Volume 10.6 FL (9.5-12.2); Microcytosis (M) 2+; Monocytes # (A) 0.27 X 10*3/uL (0.20-1.00); Monocytes % (A) 6.1 %; NRBC Per 100 WBC 0 X 10*3/uL (0.00-0.01); Neutrophils # (A) 2.92 X 10*3/uL (1.80-7.70); Neutrophils % (A) 65.8 %; Platelet Count 261 X 10*3/uL (140-440); RBC 5.49 X 10*6/uL (4.10-5.60); RDW 17.1 % (11.5-14.5); WBC 4.43 X 10*3/uL (4.50-10.00)
== END | disposition home or self-care (01) ==
LOC: LABWHC1 11:34
PROVIDERS: ATTEND Internal Medicine Gastroenterology
DX: D64.9 Anemia, unspecified (principal)
CPT/HCPCS: 36415; 80053; 82728; 83540; 83550; 85025

== ENCOUNTER 2025-01-30 08:23 | Observation (INO) | payer OTHER ==
--- NOTE | 2025-01-30 08:46 | ED ---
General Adult HPI - General Chief complaint: Syncope Stated complaint: feeling faint Time Seen by Provider: 01/30/25 08:28 Source: patient Mode of arrival: wheelchair Limitations: no limitations - History of Present Illness Initial comments: Dictation was produced using [employer] dictation software. please excuse any grammatical, word or spelling errors. Chief Complaint: 34-year-old male presents to the emergency department syncope History of Present Illness: Patient 34-year-old male presents emergency department syncope. Patient has been feeling faint for the last couple weeks. at the bedside states that he initially complained of symptoms 4 weeks ago. Since then it has been getting slightly worse. Patient does report history of cardiac disease in the family. For the last 48 hours patient has had multiple episodes of passing out. States that he feels faint and fluttering in his chest. He does not report associated chest ache to his left superior anterior chest with an ache in his left elbow area as well. The ROS documented in this emergency department record has been reviewed and confirmed by me. Those systems with pertinent positive or negative responses have been documented in the HPI. All other systems are other negative and/or noncontributory. - Related Data Home Medications Medication Instructions Recorded Confirmed Blue Chew(Unknown Dose) 1 tab PO DAILY PRN 01/30/25 01/30/25 Allergies Allergy/AdvReac Type Severity Reaction Status Date / Time No Known Allergies Allergy Verified 01/30/25 09:42 Review of Systems ROS Statement: Those systems with pertinent positive or pertinent negative responses have been documented in the HPI. ROS Other: All systems not noted in ROS Statement are negative. Past Medical History Past Medical History: No Reported History Additional Past Medical History / Comment(s): hemmorrhoids History of Any Multi-Drug Resistant Organisms: None Reported Past Surgical History: No Surgical Hx Reported Past Psychological History: No Psychological Hx Reported Past Alcohol Use History: Occasional Past Drug Use History: None Reported General Exam - General Exam Comments Initial Comments: PHYSICAL EXAM: General Impression: Alert and oriented x3, not in acute distress HEENT: Normocephalic atraumatic, extra-ocular movements intact, pupils equal and reactive to light bilaterally, mucous membranes moist. Cardiovascular: Heart regular rate and rhythm Chest: Able to complete full sentences, no retractions, no tachypnea Abdomen: abdomen soft, non-tender, non-distended, no organomegaly Musculoskeletal: Pulses present and equal in all extremities, no peripheral edema Motor: no focal deficits noted Neurological: CN II-XII grossly intact, no focal motor or sensory deficits noted Skin: Intact with no visualized rashes Psych: Normal affect and mood Limitations: no limitations Course Vital Signs 01/30/25 01/30/25 08:24 09:35 Temperature 98.1 F Pulse Rate 61 65 Respiratory 18 18 Rate Blood Pressure 151/99 122/77 O2 Sat by Pulse 99 95 Oximetry EKG Findings - EKG Comments: EKG Findings:: My EKG interpretation: Ventricular rate 94, sinus bradycardia, ND interval 142, QRS 100, QTc 391. No ND prolongation, no QTC prolongation, no ST or T-wave changes noted. 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 sent in by a medical professional or institution (, PA, LENS ENGRAVER, urgent care, hospital, or care home...) When possible be specific @ -No Did you speak to anyone other than the patient for history (EMS, parent, family, police, friend...)? What history was obtained from this source @ -No Did you review nursing and triage notes (agree or disagree)? Why? @ -I reviewed and agree with nursing and triage notes Were old charts reviewed (outside hosp., previous admission, EMS record, old EKG, old radiological studies, urgent care reports/EKG's, care home records)? Report findings @ -No old charts were reviewed Differential Diagnosis (chest pain, altered mental status, abdominal pain women, abdominal pain men, vaginal bleeding, musculoskeletal, weakness, fever, dyspnea, syncope, headache, dizziness, GI bleed, back pain, seizure, CVA, palpatations, mental health)? @ -Differential Syncope: Valvular disease, hypertrophic cardiomyopathy, pulmonary embolism, tamponade, tachycardia, bradycardia, CT, hypovolemia, hemorrhage, dissection, anemia, intracranial hemorrhage, seizure, hypoglycemia, carbon monoxide poisoning, this is not meant to be an all-inclusive list. EKG interpreted by me (3pts min.). @ -See above X-rays interpreted by me (1pt min.). @ -Chest x-ray is nonacute CT interpreted by me (1pt min.). @ -None done U/S interpreted by me (1pt. min.). @ -None done What testing was considered but not performed or refused? (CT, X-rays, U/S, labs)? Why? @ -None What meds were considered but not given or refused? Why? @ -None Was smoking cessation discussed for >3mins.? @ -No Were there social determinants of health that impacted care today? How? (Homelessness, low income, unemployed, alcoholism, drug addiction, transportation, low edu. Level, literacy, decrease access to med. care, senior living, rehab)? @ -No Was there de-escalation of care discussed even if they declined (Discuss DNR or withdrawal of care, Hospice)? DNR status @ -No What co-morbidities impacted this encounter? (DM, HTN, Smoking, COPD, CAD, Cancer, CVA, ARF, Chemo, Hep., AIDS, mental health diagnosis, sleep apnea, morbid obesity)? @ -None Was patient admitted / discharged? Hospital course, mention meds given and route, prescriptions, significant lab abnormalities, going to OR and other pertinent info. @ -34-year-old male presents emergency department with worsening symptoms of fe eling faint syncope. Vital signs stable. Patient well-appearing at the bedside. Laboratory evaluation is unremarkable. 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 No signs of ischemia infarction. Troponins negative. Given patient's syncope plus chest pain patient will be admitted observation consultation to cardiology. Case discussed with hospitalist for admission Did you discuss the management of the patient with other professionals (professionals i.e. , PA, LENS ENGRAVER, lab, RT, psych nurse, administrator social welfare, customer assistance associate, teacher, chief revenue officer, dependency case manager)? Give summary @ -See above Was critical care preformed (if so, how long)? @ -No Undiagnosed new problem with uncertain prognosis? @ -No Drug Therapy requiring intensive monitoring for toxicity (Heparin, Nitro, Insulin, Cardizem)? @ -No Were any procedures done? @ -No Diagnosis/symptom? Acute, or Chronic, or Acute on Chronic? Uncomplicated (without systemic symptoms) or Complicated (systemic symptoms)? @ -Syncope Side effects of treatment? @ -No Exacerbation, Progression, or Severe Exacerbation? @ -No Poses a threat to life or bodily function? How? (Chest pain, USA, CT, pneumonia, PE, COPD, DKA, ARF, appy, cholecystitis, CVA, Diverticulitis, Homicidal, Suicidal, threat to staff... and all critical care pts) @ -yes - Lab Data Result diagrams: 01/30/25 08:45 01/30/25 08:45 Lab Results 01/30/25 01/30/25 01/30/25 Range/Units 08:45 08:45 08:45 WBC 4.71 (4.50-10.00) 10*3/uL RBC 5.35 (4.40-5.60) 10*6/uL Hgb 15.7 (13.0-17.0) g/dL Hct 44.5 (39.6-50.0) % MCV 83.2 (80.0-97.0) fL MCH 29.3 (27.0-32.0) pg MCHC 35.3 (32.0-37.0) g/dL Plt Count 217 (140-440) 10*3/uL MPV 10.0 (9.5-12.2) fL Immature Gran % (Auto) 0.6 % Neutrophils % 70.1 % Lymphocytes % 22.3 % Monocytes % 5.5 % Eosinophils % 1.1 % Basophils % 0.4 % Immature Gran # 0.03 (0.00-0.04) 10*3/uL Neutrophils # 3.30 (1.80-7.70) 10*3/uL Lymphocytes # 1.05 (0.90-5.00) 10*3/uL Monocytes # 0.26 (0.20-1.00) 10*3/uL Eosinophils # 0.05 (0.04-0.35) 10*3/uL Basophils # 0.02 (0.00-0.10) 10*3/uL PT 11.4 (10.0-12.5) sec INR 1.0 (<1.2) APTT 24.6 (22.0-30.0) sec Sodium 140 (137-145) mmol/L Potassium 4.1 (3.5-5.1) mmol/L Chloride 107 (98-107) mmol/L Carbon Dioxide 22 (22-30) mmol/L Anion Gap 11 mmol/L BUN 16 (9-20) mg/dL Creatinine 0.90 (0.66-1.25) mg/dL Est GFR (CKD-EPI)AfAm >90 (>60 ml/min/1.73 sqM) Est GFR (CKD-EPI)NonAf >90 (>60 ml/min/1.73 sqM) Glucose 111 H (74-99) mg/dL Calcium 9.8 (8.4-10.2) mg/dL Total Bilirubin 1.3 (0.2-1.3) mg/dL AST 24 (17-59) U/L ALT 29 (4-49) U/L Alkaline Phosphatase 74 (38-126) U/L Troponin I (0.000-0.034) ng/mL Total Protein 8.1 (6.3-8.2) g/dL Albumin 4.7 (3.5-5.0) g/dL 01/30/25 Range/Units 08:45 WBC (4.50-10.00) 10*3/uL RBC (4.40-5.60) 10*6/uL Hgb (13.0-17.0) g/dL Hct (39.6-50.0) % MCV (80.0-97.0) fL MCH (27.0-32.0) pg MCHC (32.0-37.0) g/dL Plt Count (140-440) 10*3/uL MPV (9.5-12.2) fL Immature Gran % (Auto) % Neutrophils % % Lymphocytes % % Monocytes % % Eosinophils % % Basophils % % Immature Gran # (0.00-0.04) 10*3/uL Neutrophils # (1.80-7.70) 10*3/uL Lymphocytes # (0.90-5.00) 10*3/uL Monocytes # (0.20-1.00) 10*3/uL Eosinophils # (0.04-0.35) 10*3/uL Basophils # (0.00-0.10) 10*3/uL PT (10.0-12.5) sec INR (<1.2) APTT (22.0-30.0) sec Sodium (137-145) mmol/L Potassium (3.5-5.1) mmol/L Chloride (98-107) mmol/L Carbon Dioxide (22-30) mmol/L Anion Gap mmol/L BUN (9-20) mg/dL Creatinine (0.66-1.25) mg/dL Est GFR (CKD-EPI)AfAm (>60 ml/min/1.73 sqM) Est GFR (CKD-EPI)NonAf (>60 ml/min/1.73 sqM) Glucose (74-99) mg/dL Calcium (8.4-10.2) mg/dL Total Bilirubin (0.2-1.3) mg/dL AST (17-59) U/L ALT (4-49) U/L Alkaline Phosphatase (38-126) U/L Troponin I <0.012 (0.000-0.034) ng/mL Total Protein (6.3-8.2) g/dL Albumin (3.5-5.0) g/dL Disposition Clinical Impression: Syncope Disposition: ADMITTED IP TO THIS HOSP Condition: Fair Referrals: Denise Rae DO [Primary Care Provider] - 1-2 days Decision Time: 09:45
[2025-01-30 09:02] LABS: Basophils # (A) 0.02 10*3/uL (0.00-0.10); Basophils % (A) 0.4 %; Eosinophils # (A) 0.05 10*3/uL (0.04-0.35); Eosinophils % (A) 1.1 %; HCT 44.5 % (39.6-50.0); HGB 15.7 g/dL (13.0-17.0); Lymphocytes # (A) 1.05 10*3/uL (0.90-5.00); Lymphocytes % (A) 22.3 %; MCH 29.3 pg (27.0-32.0); MCHC 35.3 g/dL (32.0-37.0); MCV 83.2 fL (80.0-97.0); Monocytes # (A) 0.26 10*3/uL (0.20-1.00); Monocytes % (A) 5.5 %; Neutrophils % (A) 70.1 %; Platelet Count 217 10*3/uL (140-440); RBC 5.35 10*6/uL (4.40-5.60); RDW 11.7 % (11.5-14.5); WBC 4.71 10*3/uL (4.50-10.00)
--- NOTE | 2025-01-30 09:10 | XR ---
EXAMINATION TYPE: XR chest 2V DATE OF EXAM: 01/30/2025 9:06 AM COMPARISON: None TECHNIQUE: XR chest 2V Frontal and lateral views of the chest. CLINICAL INDICATION:Male, 34 years old with history of syncope; FINDINGS: Lungs/Pleura: There is no evidence of pleural effusion, focal consolidation, or pneumothorax. Pulmonary vascularity: Unremarkable. Heart/mediastinum: Cardiomediastinal silhouette is unremarkable. Musculoskeletal: No acute osseous pathology. IMPRESSION: No acute cardiopulmonary disease/process. [facility], , 01/30/2025 9:08 AM
[2025-01-30 09:11] LABS: Partial Thromboplastin Time 24.6 sec (22.0-30.0); Prothrombin Time 11.4 sec (10.0-12.5)
[2025-01-30 09:14] LABS: ALT 29 U/L (4-49); AST 24 U/L (17-59); African American GFR (CKD) >90 (>60 ml/min/1.73 sqM); Albumin 4.7 g/dL (3.5-5.0); Alkaline Phosphatase 74 U/L (38-126); Anion Gap 11 mmol/L; Blood Urea Nitrogen 16 mg/dL (9-20); Calcium 9.8 mg/dL (8.4-10.2); Carbon Dioxide 22 mmol/L (22-30); Chloride 107 mmol/L (98-107); Glucose 111 mg/dL (74-99); Non-African American GFR(CKD) >90 (>60 ml/min/1.73 sqM); Potassium 4.1 mmol/L (3.5-5.1); Sodium 140 mmol/L (137-145); Total Bilirubin 1.3 mg/dL (0.2-1.3); Total Protein 8.1 g/dL (6.3-8.2)
[2025-01-30] MEDS ORDERED: NITROGLYCERIN SL TABS 0.4 MG TAB SUBLINGUAL PRN (10:06)
[2025-01-30] MEDS: ASPIRIN 81 MG PO STA (10:12)
--- NOTE | 2025-01-30 22:25 | P.HPIM ---
History of Present Illness H&P Date: 01/30/25 Chief Complaint: Passed out Patient is an 34-year-old male without significant past medical history except hemorrhoids presents to ER with complaints of passed out. Patient states that last night he had palpitations and left side chest pain and left arm pain. Pain is mainly left retrosternal, left neck and upper chest. Patient states he passed out after that for few minutes. Last time he passed out on Wednesday. He felt heart beating of fast and dizzy. Denies any associated nausea and vomiting. No headache. No leg swelling.He did take aspirin which seemed to hel p his symptoms. Patient did have prior episode of passing out especially when he is intoxicated already using weed. Patient also states that he has significant family history of heart problems in his mom's family. Chest x-ray showed no acute cardiopulmonary process EKG showed sinus bradycardia with heart rate 54 Laboratory data showed WBC 4.7 hemoglobin 13.7 and platelets 217 sodium 140 potassium 4.1 chloride 107 bicarb is 22 BUN 16 and creatinine 0.9 and blood sugar 111. Troponin x 3 negative Review of Systems Constitutional: Patient denies any fever or chills . No generalized weakness or weight loss. Abdomen: Patient denied nausea vomiting and diarrhea and abdominal pain. Cardiovascular: Patient denies any chest pain or short of breath no palpitations. Respiratory: patient denied any cough or sputum production. No shortness of breath Neurologic: Patient denied any numbness or tingling. no headache. Musculoskeletal: Patient denies any complaints of joint swelling or deformity. Skin: Negative Psychiatric: Negative Endocrine: No heat or cold intolerance. No recent weight gain. Genitourinary: No dysuria or hematuria. All other 14 point ROS negative except the above Past Medical History Past Medical History: No Reported History Additional Past Medical History / Comment(s): hemmorrhoids History of Any Multi-Drug Resistant Organisms: None Reported Past Surgical History: No Surgical Hx Reported Past Psychological History: No Psychological Hx Reported Smoking Status: Never smoker Past Alcohol Use History: Occasional Past Drug Use History: None Reported Medications and Allergies Home Medications Medication Instructions Recorded Confirmed Type Blue Chew(Unknown Dose) 1 tab PO DAILY PRN 01/30/25 01/30/25 History Allergies Allergy/AdvReac Type Severity Reaction Status Date / Time No Known Allergies Allergy Verified 01/30/25 09:42 Physical Exam Vitals: Vital Signs Temp Pulse Pulse Pulse Pulse Resp BP 01/30/25 15:35 98.5 F 57 L 67 53 L 01/30/25 15:24 98.3 F 01/30/25 15:12 48 L 16 107/67 01/30/25 11:21 53 L 16 117/70 01/30/25 09:35 65 18 122/77 01/30/25 08:24 98.1 F 61 18 151/99 BP BP BP Pulse Ox 01/30/25 15:35 132/88 131/85 124/71 97 01/30/25 15:24 01/30/25 15:12 95 01/30/25 11:21 97 01/30/25 09:35 95 01/30/25 08:24 99 Intake and Output 01/30/25 01/30/25 01/30/25 06:59 14:59 22:59 Other: Weight 124.738 kg 124.738 kg PHYSICAL EXAMINATION: Patient is lying in the bed comfortably, no acute distress, awake alert and oriented.. HEENT: Normocephalic. Neck is supple. Pupils reactive. Nostrils clear. Oral cavity is moist. Neck reveals no JVD, carotid bruits, or thyromegaly. CHEST EXAMINATION: Trachea is central. Symmetrical expansion. Lung beal clear to auscultation and percussion. CARDIAC: Normal S1, S2 with no gallops. No murmurs ABDOMEN: Soft. Bowel sounds normal. No organomegaly. No abdominal bruits. Extremities: reveal no edema. No clubbing or cyanosis Neurologically awake, alert, oriented x3 with well-coordinated movements. No focal deficits noted Skin: No rash or skin lesions. Psychiatric: Coperative. Nonsuicidal Musculoskeletal: No joint swelling or deformity. Normal range of motion. Results CBC & Chem 7: 01/30/25 08:45 01/30/25 08:45 Labs: Abnormal Lab Results - Last 24 Hours (Table) 01/30/25 Range/Units 08:45 Glucose 111 H (74-99) mg/dL Thrombosis Risk Factor Assmnt - DVT/VTE Prophylaxis DVT/VTE Prophylaxis: Pharmacologic Prophylaxis ordered Assessment and Plan Assessment: Atypical chest pain. Rule out ACS. Acute syncopal episode. Rule out arrhythmia Sinus bradycardia History of marijuana use Obesity BMI 38.4 DVT prophylaxis with heparin subcu Plan: Patient will be continued on telemonitoring. EKG and troponin x 3 negative. Continue with aspirin and lipid panel was ordered. Cardiology evaluation. Continue to follow. Time with Patient: Greater than 30
[2025-01-30] MEDS: HEPARIN SODIUM,PORCINE 5,000 UNIT/ML 1 ML VIAL SQ SCH (23:43)
[2025-01-31 07:32] VITALS: PULSE 58
[2025-01-31 08:29] LABS: BUN/Creat Ratio 15.09 Ratio (12.00-20.00); Blood Urea Nitrogen 16.6 mg/dL (9.0-27.0); Calcium 9.5 mg/dL (8.7-10.3); Carbon Dioxide 25.2 mmol/L (21.6-31.8); Chloride 104 mmol/L (96-109); Chol/HDL Ratio 4.82 Ratio; Glucose 93 mg/dL (70-110); LDL Cholesterol,Calculated 99.8 mg/dL (0.0-131.0); Potassium 4.2 mmol/L (3.5-5.5); Sodium 141 mmol/L (135-145)
[2025-01-31] MEDS ORDERED: ASPIRIN 325 MG TAB PO SCH (09:00)
--- NOTE | 2025-01-31 11:21 | P.CRDCN ---
History of Present Illness History of present illness: HISTORY OF PRESENT ILLNESS: This is a 34-year-old male with a past medical history significant for obesity, marijuana use, and anemia secondary to hemorrhoids. Patient does not follow with a administrative support technician. We have been asked to see the patient in consultation for syncope. Patient examined at the bedside. Patient states on Wednesday he took a blue 2 which is a medication for erectile dysfunction that contains the same active ingredient as Viagra. He states he also smoked marijuana at that time. The patient reports he began to feel dizzy and did pass out. He reports he has had multiple episodes of presyncope that usually occur after smoking marijuana or using a blue chew. Patient currently denies any chest pain or pressure. Denies shortness of breath. Vital signs are stable. DIAGNOSTICS: - EKG reveals sinus bradycardia with no signs of acute ischemia. - Chest xray negative for acute process. - Laboratory data: WBC 4.71. Hemoglobin 15.7. Platelet count 217. Sodium 141. Potassium 4.2. BUN 16. Creatinine 1.1. Troponin negative x 3. - Current home cardiac medications include none. - No previous echocardiogram, stress test, or cardiac catheterization available in EMR for review REVIEW OF SYSTEMS: At the time of my exam: CONSTITUTIONAL: Denies fever or chills. HEENT: Denies blurred vision, vision changes, or eye pain. Denies hemoptysis CARDIOVASCULAR: Denies chest pain. Denies orthopnea. Denies PND. Denies palpitations RESPIRATORY: Denies shortness of breath. GASTROINTESTINAL: Denies abdominal pain. Denies nausea or vomiting. HEMATOLOGIC: Denies bleeding disorders. GENITOURINARY: Denies any blood in urine. SKIN: Denies pruitis. Denies rash. PHYSICAL EXAM: VITAL SIGNS: Reviewed. GENERAL: Well-developed in no acute distress. HEENT: Head is normocephalic. Pupils are equal, round. Sclerae anicteric. Mucous membranes of the mouth are moist. Neck supple. No JVD or thyromegaly LUNGS: Respirations even and unlabored. Lungs essentially clear to auscultation bilaterally. HEART: Regular rate and rhythm. S1 and S2 heard. ABDOMEN: Soft. Nondistended. Nontender. EXTREMITIES: Normal range of motion. No clubbing or cyanosis. Peripheral pulses intact. No lower extremity edema NEUROLOGIC: Awake and alert. Oriented x 3. ASSESSMENT: Syncope, likely secondary to erectile dysfunction medication ("Blue Chew") and marijuana use Multiple episodes of presyncope History of anemia secondary to hemorrhoids Obesity: BMI 38.4 PLAN: Obtain 2D echo to assess cardiac structure and function Continue telemetry monitoring to assess for any arrhythmias Patient instructed to abstain from using marijuana and also erectile dysfunction medications Patient to receive 30-day event monitor Continue to monitor patient for 24 hours and anticipate discharge home tomorrow patient remains stable Nurse practitioner note has been reviewed by physician. Signing provider agrees with the documented findings, assessment, and plan of care documented by PARTS ROOM CLERK as a scribe. Past Medical History Past Medical History: No Reported History Additional Past Medical History / Comment(s): hemmorrhoids History of Any Multi-Drug Resistant Organisms: None Reported Past Surgical History: No Surgical Hx Reported Past Psychological History: No Psychological Hx Reported Smoking Status: Never smoker Past Alcohol Use History: Occasional Past Drug Use History: None Reported Medications and Allergies Home Medications Medication Instructions Recorded Confirmed Type Blue Chew(Unknown Dose) 1 tab PO DAILY PRN 01/30/25 01/30/25 History Allergies Allergy/AdvReac Type Severity Reaction Status Date / Time No Known Allergies Allergy Verified 01/30/25 09:42 Physical Exam Vitals: Vital Signs Temp Pulse Pulse Pulse Pulse Resp BP 01/31/25 07:15 97.9 F 58 L 17 01/31/25 01:11 97.9 F 95 16 01/30/25 19:08 98.4 F 65 16 01/30/25 15:35 98.5 F 57 L 67 53 L 01/30/25 15:24 98.3 F 01/30/25 15:12 48 L 16 107/67 01/30/25 11:21 53 L 16 117/70 01/30/25 09:35 65 18 122/77 BP BP BP Pulse Ox 01/31/25 07:15 126/78 97 01/31/25 01:11 150/93 97 01/30/25 19:08 145/79 98 01/30/25 15:35 132/88 131/85 124/71 97 01/30/25 15:24 01/30/25 15:12 95 01/30/25 11:21 97 01/30/25 09:35 95 Intake and Output 01/30/25 01/31/25 01/31/25 22:59 06:59 14:59 Other: # Voids 2 Weight 124.738 kg Results 01/30/25 08:45 01/31/25 05:07 Cardiac Enzymes 01/30/25 01/30/25 01/30/25 Range/Units 08:45 08:45 12:12 AST 24 (17-59) U/L Troponin I <0.012 <0.012 (0.000-0.034) ng/mL 01/30/25 Range/Units 15:18 AST (17-59) U/L Troponin I <0.012 (0.000-0.034) ng/mL Coagulation 01/30/25 Range/Units 08:45 PT 11.4 (10.0-12.5) sec APTT 24.6 (22.0-30.0) sec Lipids 01/31/25 Range/Units 05:07 Triglycerides 139.00 (0.00-149.00) mg/dL Cholesterol 161.00 (0.00-200.00) mg/dL HDL Cholesterol 33.40 L (40.00-60.00) mg/dL Cholesterol/HDL Ratio 4.82 Ratio CBC 01/30/25 Range/Units 08:45 WBC 4.71 (4.50-10.00) 10*3/uL RBC 5.35 (4.40-5.60) 10*6/uL Hgb 15.7 (13.0-17.0) g/dL Hct 44.5 (39.6-50.0) % Plt Count 217 (140-440) 10*3/uL Comprehensive Metabolic Panel 01/30/25 01/31/25 Range/Units 08:45 05:07 Sodium 140 141 (137-145) mmol/L Potassium 4.1 4.2 (3.5-5.1) mmol/L Chloride 107 104 (98-107) mmol/L Carbon Dioxide 22 25.2 (22-30) mmol/L BUN 16 16.6 (9-20) mg/dL Creatinine 0.90 1.1 (0.66-1.25) mg/dL Glucose 111 H 93 (74-99) mg/dL Calcium 9.8 9.5 (8.4-10.2) mg/dL AST 24 (17-59) U/L ALT 29 (4-49) U/L Alkaline Phosphatase 74 (38-126) U/L Total Protein 8.1 (6.3-8.2) g/dL Albumin 4.7 (3.5-5.0) g/dL Current Medications Generic Name Dose Route Start Last Admin Trade Name Freq PRN Reason Stop Dose Admin Heparin Sodium (Porcine) 5,000 unit 01/31/25 00:00 01/30/25 23:43 Heparin Sodium,Porcine 5,000 Unit/Ml 1 Ml Vial SQ Not Given Q8HR JOSE A Nitroglycerin 0.4 mg 01/30/25 10:06 Nitroglycerin Sl Tabs 0.4 Mg Tab SUBLINGUAL Q5M PRN Chest Pain Intake and Output 01/30/25 01/31/25 01/31/25 22:59 06:59 14:59 Other: # Voids 2 Weight 124.738 kg 01/30/25 08:45 01/31/25 05:07
[2025-01-31 14:32] VITALS: BP 139/88; RESP 16; TEMP 97.6
--- NOTE | 2025-02-01 08:14 | CA ---
Transthoracic Echo Report Name: Young Jenkins Age: 34 Gender: M : 1990 Exam Date: 01/31/2025 12:00 Exam Location: [facility] Ht (in): 71 Wt (lb): 275 Ordering Physician: Liliane Clancy Attending/Referring Phys: [id number], Aston Door Captain Melly Lamb RDCS Procedure CPT: Indications: LV function, syncope Cardiac Hx: Technical Quality: Good Contrast 1: Total Dose (mL): Contrast 2: Total Dose (mL): MEASUREMENTS (Male / Female) Normal Values 2D ECHO LV Diastolic Diameter PLAX 4.4 cm 4.2 - 5.9 / 3.9 - 5.3 cm LV Systolic Diameter PLAX 3.2 cm IVS Diastolic Thickness 1.0 cm 0.6 - 1.0 / 0.6 - 0.9 cm LVPW Diastolic Thickness 1.0 cm 0.6 - 1.0 / 0.6 - 0.9 cm LV Relative Wall Thickness 0.5 RV Internal Dim ED PLAX 3.8 cm LA Systolic Diameter LX 3.8 cm 3.0 - 4.0 / 2.7 - 3.8 cm LV Diastolic Volume MOD 4C 169.5 cm??? LV Systolic Volume MOD 4C 78.0 cm??? LV Ejection Fraction MOD 4C 54.0 % LV Cardiac Index MOD 4C 1794.0 cm???/min???m??? LV Diastolic Length 4C 10.5 cm LV Systolic Length 4C 8.1 cm LV Diastolic Volume MOD 2C 197.4 cm??? LV Systolic Volume MOD 2C 90.0 cm??? LV Ejection Fraction MOD 2C 54.4 % LV Cardiac Index MOD 2C 2105.7 cm???/min???m??? LV Diastolic Length 2C 10.9 cm LV Systolic Length 2C 8.9 cm LA Volume 85.4 cm??? 18 - 58 / 22 - 52 cm??? LA Volume Index 33.5 cm???/m??? 16 - 28 cm???/m??? M-MODE Aortic Root Diameter MM 3.5 cm AV Cusp Separation MM 2.7 cm DOPPLER AV Peak Velocity 122.4 cm/s AV Peak Gradient 6.0 mmHg MV Area PHT 4.1 cm??? Mitral E Point Velocity 83.4 cm/s Mitral A Point Velocity 62.4 cm/s Mitral E to A Ratio 1.3 MV Deceleration Time 184.8 ms FINDINGS Left Ventricle Left ventricular ejection fraction is estimated at 55-60 %. Left ventricular cavity size normal. Left ventricular wall thickness normal. Normal left ventricular wall motion. Right Ventricle Mild right ventricular dilatation. Unable to estimate the right ventricular systolic pressure. Right Atrium Normal right atrial size. No right atrial thrombus or mass seen. Left Atrium Mildly increased left atrial volume. Mildly increased left atrial area. No left atrial thrombus or mass present. Mitral Valve Structurally normal mitral valve. No mitral stenosis, regurgitation or prolapse. Aortic Valve Trileaflet aortic valve. No aortic valve stenosis or regurgitation. Tricuspid Valve Structurally normal tricuspid valve. No tricuspid stenosis, regurgitation or prolapse. Pulmonic Valve Structurally normal pulmonic valve. Trace pulmonic regurgitation. Pericardium No pericardial effusion. Aorta Normal size aortic root and proximal ascending aorta. CONCLUSIONS Normal LV size and systolic function. No significant abnormality on the Doppler exam. No pericardial effusion. Right-sided pressures are not quantified but probably normal Previewed by: Dr. Angie Rodney MD (Electronically Signed) Final Date: 01 Feb 2025 08:13
--- NOTE | 2025-02-11 23:40 | P.DS ---
Providers Date of admission: 01/30/25 10:06 Expected date of discharge: 01/31/25 Attending physician: Isabelle Montoya Consults: 01/30/25 10:06 Consult Physician Urgent Consulting Provider: Cesario Guy Consult Reason/Comments: syncope Do you want consulting provider notified?: Yes Primary care physician: Denise Rae Hospital Course: Final diagnosis Atypical chest pain. Ruled out ACS. Acute syncopal episode. Rule out arrhythmia, has received an event monitor and will follow-up with cardiology outpatient Sinus bradycardia History of marijuana use Obesity BMI 38.4 DVT prophylaxis with heparin subcu GI prophylaxis Full code Discharge disposition Patient is being discharged in a stable condition with guarded prognosis to home. Patient will follow-up with Dr. Rae in the outpatient setting upon discharge. Patient is to continue with an event monitor he received an outpatient follow-up with cardiology as scheduled. Total time taken is greater than 35 minutes. Hospital course This is a 34-year-old male who was recently admitted with atypical chest pain, ruled out ACS with an acute syncopal episode being closely monitored with cardiology following. Nothing abnormal noted on telemetry monitoring recommending an event monitor and 2D echo which was done and pending for read although has been cleared by cardiology for discharge as patient is keen on g oing home today and reports he may be following up with his family members die lay out worker in [place]. Patient will need to follow-up here regarding event monitor with die lay out worker in the clinic or obtain medical records. Patient reports to feeling improved and denies any further chest pain would like to go home. Patient reports is being discharged or will leave against AMA. Patient has been cleared by cardiology recommending outpatient follow-up. Please refer to cardiology notes for further HPI. Currently no reports of chest pain, shortness of breath, or palpitations. Patient is afebrile. No reports of nausea or vomiting and patient is tolerating diet. Patient will be discharged home today. Guarded prognosis Physical exam: Gen: This is a 34-year-old male who is awake, alert and oriented x 3, well- developed, obese HEENT: Head is atraumatic, normocephalic. Pupils equal, round. Sclerae is anicteric. NECK: Supple. No JVD. No lymphadenopathy. No thyromegaly. LUNGS: Diminished breath sounds bilaterally otherwise clear to auscultation. No wheezes or rhonchi. No intercostal retractions. HEART: Regular rate and rhythm. No murmur. ABDOMEN: Soft. Obese. Bowel sounds are present. No masses. No tenderness. EXTREMITIES: No pedal edema. No calf tenderness. NEUROLOGICAL: Patient is awake, alert and oriented x3. Cranial nerves 2 through 12 are grossly intact. Please refer to medication reconciliation sheet for a list of medications. The impression and plan of care has been dictated by Carrie Marley, Nurse Practitioner as directed. Dr. Juan J MD I have performed a history and examination and MDM of this patient, discussed the same with the dictator, and agree with the dictator's assessment and plan as written ,documented as a scribe. Based on total visit time, I have performed more than 50% of the visit. Patient Condition at Discharge: Fair Plan - Discharge Summary New Discharge Prescriptions: Discontinued Blue Chew(Unknown Dose) 1 tab PO DAILY PRN PRN Reason: E.D. Follow up Appointment(s)/Referral(s): Angie Rodney MD [STAFF PHYSICIAN] - 4 Weeks (Call office and make appointment to see Dr. Rodney after 30-day monitor) Denise Rae DO [Primary Care Provider] - 1-2 days Patient Instructions/Handouts: Syncope (GEN) Discharge Disposition: HOME SELF-CARE
== END 2025-01-31 15:00 | disposition home or self-care (01) ==
LOC: EC 08:23 → 6NMEDSUR 10:06
PROVIDERS: ADMIT Hospitalist; ATTEND Hospitalist
DX: R55 Syncope and collapse (principal); R07.89 Other chest pain; R00.1 Bradycardia, unspecified; R00.2 Palpitations; M79.602 Pain in left arm; K64.9 Unspecified hemorrhoids; E66.9 Obesity, unspecified; Z68.38 Body mass index [BMI] 38.0-38.9, adult; Z82.49 Family history of ischemic heart disease and other diseases of the circulatory system
CPT/HCPCS: 99285; 36415; 93005; 93306; 93270; 85379; 80061; 80053; 80048; 84443; 84484; 85025; 85610; 85730; 71046; G0378 ×2